=== PATIENT | female | born 1985 | race Caucasian/White ===

== ENCOUNTER → 2019-09-01 13:00 | Outpatient (CLI) | payer OTHER, SELFPAY ==
[2017-02-04 06:43] VITALS: BMI 23.7
[2019-09-07 12:10] LABS: HPV Reflexed? NOT INDICATED
== END ==
PROVIDERS: Referring Provider Obstetrics & Gynecology; Visit Provider Obstetrics & Gynecology
DX: Z12.4 Encounter for screening for malignant neoplasm of cervix (principal)
CPT/HCPCS: 88175; G0145

== ENCOUNTER 2021-12-06 09:12 | Outpatient (CLI) | payer OTHER, SELFPAY ==
[2021-12-11 18:55] LABS: HPV Reflexed? NOT INDICATED
== END 2021-12-06 23:59 | disposition home or self-care (01) ==
LOC: LABSPEC 09:14
PROVIDERS: Visit Provider Obstetrics & Gynecology
DX: Z12.4 Encounter for screening for malignant neoplasm of cervix (principal)
CPT/HCPCS: 88175; G0145